=== PATIENT | female | born 1990 | race Caucasian/White ===

== ENCOUNTER → 2016-10-01 | Outpatient (CLI) | payer OTHER ==
[~2016-10-01] MED LIST: ACET-703 PO; AMOX500T PO; IBUP-232 PO; LEVO500T8 PO; NORE0.3514 PO; NYST1OIN TOPICAL; OXYC1TAB63 PO; PREN1CAP17 PO; PREN1TAB58; SENN1TAB PO; TERC0.4C2 VAGINAL; TYLE325T PO
== END ==
LOC: HPND 09:38
PROVIDERS: ATTEND Obstetrics & Gynecology Obstetrics
DX: O99.212 Obesity complicating pregnancy, second trimester (principal); O34.212 Maternal care for vertical scar from previous cesarean delivery; Z3A.23 23 weeks gestation of pregnancy
CPT/HCPCS: 76816

== ENCOUNTER 2016-10-17 16:41 | Emergency (ER) | payer MEDICAID, OTHER ==
[~2016-10-17 16:41] MED LIST changes: -IBUP-232 PO; -LEVO500T8 PO; -NORE0.3514 PO; -NYST1OIN TOPICAL; -OXYC1TAB63 PO; -PREN1TAB58; -SENN1TAB PO; -TERC0.4C2 VAGINAL; -TYLE325T PO
--- NOTE | 2016-10-17 17:42 | PD ---
HPI Chief Complaint Feeling bad at work dizzy shortness of breath and a fall at work Date Seen: Oct 17, 2016 Travel History International Travel<30 Days: No Contact w/Intl Traveler<30Days: No History of Present Illness HPI This patient is a 26-year-old white female previous who is at 25 weeks sees Heide Soler for care, and presents today just a lot of increase in malaise, feeling bad, dizziness,. Shortness of breath while at work she fell onto her knees at work and her boss told her to go home she went home since she still did not feel much better so she called the clinic and I told her to come here. She denies bleeding or ruptured membranes her baby is moving, and her heart rate tracing is reactive she is not eduarda denies pain in the abdomen, she states she's been working more that she should have and not sleeping at home this is led to her being overexerted Para: 1 : 3 History Obstetric History Obstetric History Previous Social History Alcohol Use: No Tobacco Use: No Substance Abuse: No Allergies-Medications (Allergen,Severity, Reaction): Coded Allergies: No Known Allergies (Verified , 09/25/16) Home Meds Active Scripts Amoxicillin 500 Mg [id number] Mg PO TID #30 TAB Ref 0 Prov:Akanksha Soler 09/25/16 W/O A W/ Fe Asparto G (Prenate Pixie 10-0.6-0.4-200 mg)1 Cap Cap1 Tab PO DAILY #30 BOTTLE Ref 11 Prov:Akanksha Soler 07/31/16 Reported Medications Acetaminophen (Tylenol Extra Strength)500 Mg [id number] Mg PO Q4-6H PRN (PAIN) Ref 0 08/28/16 Review of Systems HENT: Vertigo, Lightheadedness Respiratory: Short of Breath Musculoskeletal: Weakness Physical Exam Narrative GENERAL: Well-nourished, well-developed patient. SKIN: Warm and dry. HEAD: Normocephalic and atraumatic. EYES: No scleral icterus. No injection or drainage. ENT: No nasal drainage noted. Mucous membranes pink. Airway patent. NECK: Supple, trachea midline. No JVD. CARDIOVASCULAR: Regular rate and rhythm without murmurs, gallops, or rubs. RESPIRATORY: Breath sounds equal bilaterally. No accessory muscle use. BREASTS: Bilateral exam showed no masses , no retractions, no nipple discharge. ABDOMEN/GI: Abdomen soft, non-tender, bowel sounds present, no rebound, no guarding Gravid to [-27] weeks size Fundal Height: [28 cm-] GENITOURINARY: External Genitalia: intact and normal in appearance BUS glands: [-] Cervix: [-] Not checked today Membranes: [intact ] Uterine Contractions: [none-] FHT's: Category: [1-] Baseline: [144-] Reactive: [yes-] Variability: [mod-] Decels: [none-] EXTREMITIES: No cyanosis or edema. BACK: Nontender without obvious deformity. No CVA tenderness. NEUROLOGICAL: Awake and alert. Motor and sensory grossly within normal limits. Five out of 5 muscle strength in all muscle groups. Normal speech. MDM Interpretation(s) Recent is 26-year-old white female previous 25 weeks who is been overworking herself at her job and is result is having dizziness shortness of breath. Her O2 saturations are 100% today lungs are clear, after resting here on OB ED she did feel better heart rate tracing is reactive she is not eduarda she was given by mouth fluids for hydration today work release to be off work for the next 3-4 days and try and increase her bedrest during that time. Increase her oral fluids use Tylenol liberally if needed ,,heating pad and or hot bath . Her blood pressure was normal today and has not been an issue for her. Plan Plan to observe the patient for the next 30 minutes after the baby's heart rate monitors within normal limits and she is feeling better discharge her home to bedrest with a work note and fossa see her doctor for further problems. Diagnosis Diagnosis: Primary Impression: Dehydration, mild Additional Impression: Malaise and fatigue Disposition: 01 DISCHARGE HOME Condition: Stable Departure Forms: Work Release Jose Concepcion II, MD Oct 17, 2016 17:42
[2017-03-11] MEDS ORDERED: PREN1TAB58 (10:19)
[2017-03-11] MEDS ORDERED: TYLE325T PO (10:19)
[2017-03-11] MEDS ORDERED: NYST1OIN TOPICAL (10:45)
[2017-03-11] MEDS ORDERED: NORE0.3514 PO (10:51)
[2017-03-11] MEDS ORDERED: TERC0.4C2 VAGINAL (16:19)
[2017-03-17] MEDS ORDERED: LEVO500T8 PO (14:09)
== END 2016-10-17 19:08 | disposition home or self-care (01) ==
LOC: HOBED 16:41
DX: O26.812 Pregnancy related exhaustion and fatigue, second trimester (principal); O26.892 Other specified pregnancy related conditions, second trimester; E86.0 Dehydration; R06.02 Shortness of breath; R42 Dizziness and giddiness; O34.219 Maternal care for unspecified type scar from previous cesarean delivery; Z3A.25 25 weeks gestation of pregnancy
CPT/HCPCS: 99284

== ENCOUNTER → 2016-10-29 | Outpatient (CLI) | payer OTHER, MEDICAID ==
[~2016-10-29] MED LIST changes: +IBUP-232 PO; +LEVO500T8 PO; +NORE0.3514 PO; +NYST1OIN TOPICAL; +OXYC1TAB63 PO; +PREN1TAB58; +SENN1TAB PO; +TERC0.4C2 VAGINAL; +TYLE325T PO
== END ==
LOC: HPND 09:42
PROVIDERS: ATTEND Obstetrics & Gynecology
DX: O99.212 Obesity complicating pregnancy, second trimester (principal); O34.212 Maternal care for vertical scar from previous cesarean delivery
CPT/HCPCS: 76816

== ENCOUNTER → 2016-11-27 | Outpatient (CLI) | payer MEDICAID ==
[~2016-11-27] MED LIST changes: -AMOX500T PO
== END ==
LOC: HPND 09:29
PROVIDERS: ATTEND Obstetrics & Gynecology
DX: O99.212 Obesity complicating pregnancy, second trimester (principal); O34.212 Maternal care for vertical scar from previous cesarean delivery
CPT/HCPCS: 76816

== ENCOUNTER 2017-01-29 09:29 | Inpatient (IN) | payer MEDICAID ==
[2017-01-29] VITALS (32 sets, daily range): BP systolic 114–155; BP diastolic 50–87; PULSE 61–91; RESP 16–20; TEMP 97.6–98.6; O2SAT 100
[~2017-01-29] VITALS: Ht 160 cm; Wt 127.0 kg
[~2017-01-29 09:29] MED LIST changes: -IBUP-232 PO; -LEVO500T8 PO; -NORE0.3514 PO; -NYST1OIN TOPICAL; -OXYC1TAB63 PO; -PREN1TAB58; -SENN1TAB PO; -TERC0.4C2 VAGINAL; -TYLE325T PO
--- NOTE | 2017-01-29 10:28 | PD ---
HPI Chief Complaint referral from [facility] for low fluid Date Seen: January 29, 2017 Time Seen: 10:42 Travel History International Travel<30 Days: No Contact w/Intl Traveler<30Days: No History of Present Illness HPI 26 y/o at 40/4 weeks presents from ultrasound clinic for low AD. Pt was being seen at [facility] for history of morbid obesity and following growth. Today , AD was found to be 5.3. Otherwise, pt denies any other complaints. No vaginal bleeding, loss of fluids. Feeling occasional contractions, not painful. Endorses movement. Denies any chest pain, SOB, leg pain. No headache, changes in vision, RUQ pain. Has noticed some swelling in her feet lately. [facility] Para: 1 : 3 Miscarriage: 1 History Past Medical History Narrative Medical Morbid obesity Hx blighted ovum Obstetric History Obstetric History 1st - LTCS at term due to bradycardia 2nd - miscarriage Past Surgical History Narrative Surgical Cholecystectomy-2014 Foot surgery Family History Family History: Negative Social History Alcohol Use: No Tobacco Use: No Substance Abuse: No Allergies-Medications (Allergen,Severity, Reaction): Coded Allergies: No Known Allergies (Verified , 01/29/17) Home Meds Active Scripts W/O A W/ Fe Asparto G (Prenate Pixie 10-0.6-0.4-200 mg)1 Cap Cap1 Tab PO DAILY #30 BOTTLE Ref 11 Prov:Akanksha Soler 07/31/16 Reported Medications Acetaminophen (Tylenol Extra Strength)500 Mg [id number] Mg PO Q4-6H PRN (PAIN) Ref 0 08/28/16 Review of Systems General / Constitutional: Weight Gain, No: Fever, Weight Loss, Chills Eyes: No: Blurred Vision, Pain HENT: No: Headaches, Vertigo Cardiovascular: No: Irregular Rhythm, Chest Pain or Discomfort, Palpitations Respiratory: No: Cough, Short of Breath Gastrointestinal: No: Nausea, Vomiting, Diarrhea, Abdominal Pain Genitourinary: No: Urgency, Frequency, Dysuria, Pelvic Pain, Discharge, Vaginal Bleeding Musculoskeletal: Edema, No: Limited ROM, Weakness Skin: No Itching Neurologic: No: Weakness, Dizziness Psychiatric: No: Anxiety, Depression Physical Exam Narrative GENERAL: Well-nourished, well-developed patient. SKIN: Warm and dry. HEAD: Normocephalic and atraumatic. EYES: No scleral icterus. No injection or drainage. ENT: No nasal drainage noted. Mucous membranes pink. Airway patent. NECK: Supple, trachea midline. No JVD. CARDIOVASCULAR: Regular rate and rhythm without murmurs, gallops, or rubs. RESPIRATORY: Breath sounds equal bilaterally. No accessory muscle use. ABDOMEN/GI: Abdomen soft, non-tender, bowel sounds present, no rebound, no guarding Gravid to 40 weeks size GENITOURINARY: External Genitalia: intact and normal in appearance Cervix: posterior Dilatation: 2 Effacement: 50 Station: -3 Presentation: unsure Membranes: intact Uterine Contractions: occasional FHT's: Category: 1 Baseline: 140 Reactive: yes Variability: moderate Decels: none EXTREMITIES: No cyanosis. trace edema in feet bilaterally. BACK: Nontender without obvious deformity. No CVA tenderness. NEUROLOGICAL: Awake and alert. Motor and sensory grossly within normal limits. Five out of 5 muscle strength in all muscle groups. Normal speech. Data Data Vital Signs Reviewed: Yes [facility] Medical Record Reviewed: Yes Interpretation(s) 26 y/o at 40/4 weeks presents post-dates with oligohydramnios Category 1 FHT Cervical exam 2/50/-3 GBS negative Initial BP 153/93, 150/94, 148/90;trace foot edema bilaterally - Admit for trial of labor; Pt wishes to continue with , discussed risks and possibility of - Start pitocin, 1ml/min - Continuous FHT - Monitor BPs. Will order CMP, Protein/Cr ration, uric acid - Continue expectant management Diagnosis Diagnosis: Primary Impression: 40 weeks gestation of Additional Impression: Oligohydramnios Qualified Code: O41.03X0 - Oligohydramnios, third trimester, not applicable or unspecified fetus Dano Sandhu MD R1 January 29, 2017 10:27
[2017-01-29] MEDS ORDERED: LACTATED RINGER'S 1000 ML INJ 1,000 ML IV PRN (10:41)
[2017-01-29] MEDS ORDERED: LACTATED RINGER'S 1000 ML INJ 1,000 ML IV SCH ×2 (10:41→13:03)
[2017-01-29] MEDS ORDERED: LIDOCAINE HCL 1% 50 ML VIAL INFIL PRN (10:45)
[2017-01-29] MEDS ORDERED: OXYTOCIN 30 UNITS-500ML PREMIX 500 ML IV SCH (10:45)
[2017-01-29] MEDS ORDERED: SODIUM CHLORID 0.9% 500 ML INJ 500 ML IV PRN (10:45)
[2017-01-29] MEDS ORDERED: MINERAL OIL 10 ML VIAL TOPICAL PRN (10:45)
[2017-01-29] MEDS ORDERED: ONDANSETRON HCL 4 MG/2 ML VIAL IV PRN (10:45)
[2017-01-29] MEDS ORDERED: CITRIC ACID-SODIUM CITRATE LIQ 30 ML UDC PO SCH (10:45)
[2017-01-29] MEDS ORDERED: OXYTOCIN 30 UNITS-500ML PREMIX 500 ML IV ONE ×2 (10:45→21:45)
[2017-01-29] MEDS ORDERED: LIDOCAINE HCL 1% 50 ML VIAL I-DERMAL PRN (10:45)
[2017-01-29] MEDS ORDERED: SODIUM CHLOR 0.9% 1000 ML INJ 1,000 ML IV PRN (11:01)
[2017-01-29 11:09] LABS: AUTOMATED NEUTROPHIL # 6.1 TH/MM3 (1.8-7.7); BASOPHIL # 0.1 TH/MM3 (0-0.2); BASOPHIL % 0.6 % (0.0-2.0); EOSINOPHIL # 0.1 TH/MM3 (0-0.4); EOSINOPHIL % 1.7 % (0.0-4.0); HEMATOCRIT 33.3 % (35.0-46.0); HEMO FLAGS DIFF FINAL; LYMPH % 17.7 % (9.0-44.0); LYMPHOCYTE # 1.5 TH/MM3 (1.0-4.8); MEAN CELL VOLUME 85.8 FL (80.0-100.0); MEAN CORPUSCULAR HEMOGLOBIN 28.7 PG (27.0-34.0); MEAN CORPUSCULAR HGB CONC 33.5 % (32.0-36.0); MONO % 8.7 % (0.0-8.0); NEUT % 71.3 % (16.0-70.0); PLATELET COUNT 161 TH/MM3 (150-450); RED BLOOD COUNT 3.89 MIL/MM3 (4.00-5.30); RED CELL DISTRIBUTION WIDTH 13.9 % (11.6-17.2); WHITE BLOOD COUNT 8.6 TH/MM3 (4.0-11.0)
[2017-01-29 11:14] LABS: BLOOD, URINE NEG (NEG); GLUCOSE,URINE NEG (NEG); KETONE, URINE NEG (NEG); MUCUS URINE FEW /lpf (OCC); NITRITE,URINE NEG (NEG); SQUAMOUS EPITHELIAL CELL URINE 3 /hpf (0-5); URINE COLOR YELLOW (YELLW/STRAW)
[2017-01-29 11:20] LABS: COMMENT (UR) CATH-CULT NOT IND; CULTURE IF INDICATED CATH CULTURE NOT IND
--- NOTE | 2017-01-29 11:25 | HHI.HP ---
History & Physical H&P HPI HPI Chief Complaint referral from [facility] for low fluid Date Seen: January 29, 2017 Time Seen: 10:42 Travel History International Travel<30 Days: No Contact w/Intl Traveler<30Days: No History of Present Illness HPI 26 y/o at 40/4 weeks presents from ultrasound clinic for low AD. Pt was being seen at [facility] for history of morbid obesity and following growth. Today , AD was found to be 5.3. Otherwise, pt denies any other complaints. No vaginal bleeding, loss of fluids. Feeling occasional contractions, not painful. Endorses movement. Denies any chest pain, SOB, leg pain. No headache, changes in vision, RUQ pain. Has noticed some swelling in her feet lately. Sees [facility]. Para: 1 : 3 Miscarriage: 1 History (Limited) History Past Medical History Narrative Medical Morbid obesity Hx blighted ovum Obstetric History Obstetric History 1st - LTCS at term due to bradycardia 2nd - miscarriage Past Surgical History Narrative Surgical Cholecystectomy-2014 Foot surgery Family History Family History: Negative Social History Alcohol Use: No Tobacco Use: No Substance Abuse: No Allergies-Medications Allergies-Medications (Allergen,Severity, Reaction): Coded Allergies: No Known Allergies (Verified , 01/29/17) Home Meds Active Scripts W/O A W/ Fe Asparto G (Prenate Pixie 10-0.6-0.4-200 mg)1 Cap Cap1 Tab PO DAILY #30 BOTTLE Ref 11 Prov:Akanksha Soler 07/31/16 Reported Medications Acetaminophen (Tylenol Extra Strength)500 Mg [id number] Mg PO Q4-6H PRN (PAIN) Ref 0 08/28/16 ROS Review of Systems General / Constitutional: Weight Gain, No: Fever, Weight Loss, Chills Eyes: No: Blurred Vision, Pain HENT: No: Headaches, Vertigo Cardiovascular: No: Irregular Rhythm, Chest Pain or Discomfort, Palpitations Respiratory: No: Cough, Short of Breath Gastrointestinal: No: Nausea, Vomiting, Diarrhea, Abdominal Pain Genitourinary: No: Urgency, Frequency, Dysuria, Pelvic Pain, Discharge, Vaginal Bleeding Musculoskeletal: Edema, No: Limited ROM, Weakness Skin: No Itching Neurologic: No: Weakness, Dizziness Psychiatric: No: Anxiety, Depression Physical Exam Physical Exam Narrative GENERAL: Well-nourished, well-developed patient. SKIN: Warm and dry. HEAD: Normocephalic and atraumatic. EYES: No scleral icterus. No injection or drainage. ENT: No nasal drainage noted. Mucous membranes pink. Airway patent. NECK: Supple, trachea midline. No JVD. CARDIOVASCULAR: Regular rate and rhythm without murmurs, gallops, or rubs. RESPIRATORY: Breath sounds equal bilaterally. No accessory muscle use. ABDOMEN/GI: Abdomen soft, non-tender, bowel sounds present, no rebound, no guarding Gravid to 40 weeks size GENITOURINARY: External Genitalia: intact and normal in appearance Cervix: posterior Dilatation: 2 Effacement: 50 Station: -3 Presentation: unsure Membranes: intact Uterine Contractions: occasional FHT's: Category: 1 Baseline: 140 Reactive: yes Variability: moderate Decels: none EXTREMITIES: No cyanosis. trace edema in feet bilaterally. BACK: Nontender without obvious deformity. No CVA tenderness. NEUROLOGICAL: Awake and alert. Motor and sensory grossly within normal limits. Five out of 5 muscle strength in all muscle groups. Normal speech. Data Data Data Vital Signs Reviewed: Yes MDM MDM Medical Record Reviewed: Yes Interpretation(s) 26 y/o at 40/4 weeks presents post-dates with oligohydramnios Category 1 FHT Cervical exam 2/50/-3 GBS negative Initial BP 153/93, 150/94, 148/90;trace foot edema bilaterally - Admit for trial of labor; Pt wishes to continue with , discussed risks and possibility of - Start pitocin, 1ml/min - Continuous FHT - Monitor BPs. Will order CMP, Protein/Cr ration, uric acid - Continue expectant management Diagnosis Diagnosis: Primary Impression: 40 weeks gestation of Additional Impression: Oligohydramnios Qualified Code: O41.03X0 - Oligohydramnios, third trimester, not applicable or unspecified fetus Dano Sandhu MD R1 January 29, 2017 11:25
[2017-01-29 11:28] LABS: ALT (GPT) 21 U/L (10-53); ANION GAP 9 MEQ/L (5-15); AST (GOT) 25 U/L (15-37); BICARBONATE 21.9 MEQ/L (21.0-32.0); BLOOD UREA NITROGEN 11 MG/DL (7-18); CHLORIDE 108 MEQ/L (98-107); GLOMERULAR FILTRATION RATE 111 ML/MIN (>89); POTASSIUM 3.8 MEQ/L (3.5-5.1); SODIUM (NA) 139 MEQ/L (136-145)
[2017-01-29 11:30] LABS: ALKALINE PHOSPHATASE 343 U/L (45-117); TOTAL BILIRUBIN ADULT 0.2 MG/DL (0.2-1.0)
[2017-01-29] MEDS ORDERED: ceFAZolin 2 GM PREMIX 50 ML IV ONE (13:45)
[2017-01-29] MEDS ORDERED: CITRIC ACID-SODIUM CITRATE LIQ 30 ML UDC PO ONE (14:15)
--- NOTE | 2017-01-29 18:26 | PD.LABORPN ---
Subjective Subjective Patient feeling some mild contractions Objective Vital Signs Pitocin at 10 milliunits Vital Signs Date Time Temp Pulse Resp B/P Pulse Ox O2 Delivery O2 Flow Rate FiO2 01/29/17 18:16 80 132/77 01/29/17 17:54 87 114/71 01/29/17 17:31 72 120/64 01/29/17 17:16 64 127/61 01/29/17 17:01 62 117/55 01/29/17 16:46 68 126/50 01/29/17 16:31 69 132/66 01/29/17 16:16 69 133/72 01/29/17 16:01 76 123/74 01/29/17 15:46 68 125/67 01/29/17 15:31 69 135/68 01/29/17 15:16 67 131/73 01/29/17 15:01 71 130/74 01/29/17 14:46 70 123/71 01/29/17 14:31 74 128/76 01/29/17 14:22 74 142/72 01/29/17 14:21 98.6 18 01/29/17 13:15 18 01/29/17 13:13 79 143/83 01/29/17 11:20 91 138/87 Objective No cervical change from admission Uterine Contractions: [-] Irregular FHT's: Category: [-] 1 Baseline: [-] 140 Reactive: [-] + Variability: [-] Moderate kzuj-cl-cagz variability Decels: [-] 0 Assessment/Plan Assessment and Plan Previous 1 Postdates 40 weeks and 4 days Borderline oligohydramnios No cervical change Plan; The patient has decided that she does not want to do Pitocin anymore would like to proceed with a repeat Option was given to stop the Pitocin lid her ambulate feet her shower and restarted in the morning She has elected to undergo repeat Procedure indications and complications have been fully discussed with the patient she understands desires to proceed this is her own decision Ailyn Khalil MD January 29, 2017 18:26
[2017-01-29] MEDS ORDERED: LACTATED RINGER'S 1000 ML INJ 1,000 ML IV ONE ×2 (18:33→21:30)
[2017-01-29] MEDS ORDERED: OXYTOCIN 10 UNIT/ML AMP ONE (18:35)
--- NOTE | 2017-01-29 19:37 | PD.LABORPN ---
Objective Vital Signs Vital Signs Date Time Temp Pulse Resp B/P Pulse Ox O2 Delivery O2 Flow Rate FiO2 01/29/17 18:31 75 135/76 01/29/17 18:16 80 132/77 01/29/17 17:54 87 114/71 01/29/17 17:31 72 120/64 01/29/17 17:16 64 127/61 01/29/17 17:01 62 117/55 01/29/17 16:46 68 126/50 01/29/17 16:31 69 132/66 01/29/17 16:16 69 133/72 01/29/17 16:01 76 123/74 01/29/17 15:46 68 125/67 01/29/17 15:31 69 135/68 01/29/17 15:16 67 131/73 01/29/17 15:01 71 130/74 01/29/17 14:46 70 123/71 01/29/17 14:31 74 128/76 01/29/17 14:22 74 142/72 01/29/17 14:21 98.6 18 01/29/17 13:15 18 01/29/17 13:13 79 143/83 Objective Patient taken back to the operating room on the table and just prior to the spinal placement a stat emergency was called by private physician Chain of command was initiated-it was explained 2 C-sections could not be done at the same time as there was not adequate staffing Charge nurse prioritized the stat emergency was to go first Second patient taken from the operating room back to her room placed back on the monitor Has a category 1 tracing Her diagnosis is previous section for repeat, oligohydramnios This was explained to the patient she understands and agrees Ailyn Khalil MD January 29, 2017 19:37
[2017-01-29] MEDS ORDERED: ONDANSETRON HCL 4 MG/2 ML VIAL IV PUSH ONE (21:35)
[2017-01-29] MEDS ORDERED: SIMETHICONE 80 MG CHEWABLE TAB PO PRN (21:45)
[2017-01-29] MEDS ORDERED: ACETAMINOPHEN 1000 MG/100 ML VIAL IV ONE ×2 (21:45→22:25)
[2017-01-29] MEDS ORDERED: oxyCODONE/ACETAMINOPHEN 5 MG/325 MG TAB PO PRN (21:45)
[2017-01-29] MEDS ORDERED: ZOLPIDEM TARTRATE 5 MG TAB PO PRN (21:45)
[2017-01-29] MEDS ORDERED: ACETAMINOPHEN 325 MG TAB PO PRN (21:45)
[2017-01-29] MEDS ORDERED: MORPHINE SULFATE PF 5 MG/10 ML VIAL ONE (21:45)
[2017-01-29] MEDS ORDERED: ONDANSETRON HCL 4 MG/2 ML VIAL IV PUSH PRN (21:45)
[2017-01-29] MEDS ORDERED: KETOROLAC TROMETHAMINE 60 MG/2 ML (IM) VIAL IM PRN (21:45)
--- NOTE | 2017-01-29 22:46 | PD.OP ---
Operative Report Date of Surgery: January 29, 2017 Preoperative Diagnosis: Intrauterine at 40 weeks and 4 days Postdates Previous 1 oligohydramnios Postoperative Diagnosis: Same Macrosomia Procedure: Repeat low segment transverse section/vacuum-assisted Anesthesia: Spinal Surgeon: Ailyn Carter Svp Operations(s): Dr. Rock Strange Resident Surgeon: none Operation and Findings: Anesthesiologist:: (Dr Tolentino ) Estimated blood loss: (700 cc ) Sponge and instrument count: ( Correct) Drains: ( None) Complications: (None ) Indications for procedure: (Previous 1 with failed ) Findings: (Viable male weight 4110 g Apgars of 9 at 1 minute 9 at 5 minutes ) Timeout done The patient was taken to the operating room after appropriate levels of spinal anesthesia were achieved she was placed in the supine position. A Pleitez catheter was inserted under sterile conditions and draining adequate clear urine. Intermittent compression hoses were placed and functioning. Bovie pad was placed and grounded. The abdomen was shaved prepped and draped in the usual sterile fashion. A transverse Pfannenstiel incision was made carried down through the skin subcutaneous tissue. The fascia was opened transversely. from the muscles in the midline. The rectus muscles were . Peritoneal cavity opened and the abdominal cavity entered. The bladder flap was taken down transversely and a low segment transverse incision made into the lower uterine segment. The fluid was (clear ). The infant was vertex. Due to the macrosomia a flat Kiwi vacuum was placed at the flexion point and the vertex elevated into the incision The vertex was delivered nose and mouth suctioned well the remainder of the body was then delivered. Cord doubly clamped and cut and the infant handed over to the awaiting nursing staff. The placenta spontaneously delivered intact with fundal massage. The uterus was then exteriorized cleaned of excessive blood and debris. The incision was then closed with 0 chromic in a continuous interlocking stitch. The stitch line was imbricated also using 0 chromic. No active bleeding. Tubes and ovaries were inspected and found to be normal. The abdominal cavity was then irrigated. The uterus placed back into the abdomen. Paracolic gutters cleaned of excessive blood and debris. Interceed was then placed over the incision and the anterior surface of the uterus in an inverted T. The peritoneum was then closed with 2-0 Vicryl. The muscles reapproximated. Inspection of the muscle bed demonstrated no bleeding. The fascia was then closed with 0 Vicryl in a continuous stitch. The subcutaneous tissue was irrigated bleeders controlled with Bovie. Wilfredo's fascia closed with 2-0 Vicryl. The skin was closed using (subcuticular stitch with 3-0 Monocryl on a Parmjit needle ). The uterus was massaged clearing blood and clots. The patient was cleaned. Pressure dressing and abdominal binder placed. Patient then transferred to the recovery room in stable condition, where her vital signs are (stable ). Urine is clear and adequate. Baby transferred to the nursery in stable condition. Ailyn Khalil MD January 29, 2017 22:46
[2017-01-29] MEDS ORDERED: EPIDURAL-DIPHENHYDRAMINE HCL 50 MG CAP PO PRN (23:45)
[2017-01-29] MEDS ORDERED: EPIDURAL-NO SYSTEMIC NARCOTICS PRN (23:45)
[2017-01-29] MEDS ORDERED: EPIDURAL-DIPHENHYDRAMINE HCL 50 MG/ML VIAL IV PUSH PRN (23:45)
[2017-01-29] MEDS ORDERED: EPIDURAL-NALOXONE HCL 0.4 MG/ML AMP IV PRN (23:45)
[2017-01-29] MEDS ORDERED: EPIDURAL-DO NOT ADMINISTER ANTICOAGULANTS PRN (23:45)
[2017-01-30 00:30] VITALS: BP 131/74; PULSE 94; RESP 18; RESP 20; TEMP 98.7
[2017-01-30] MEDS ORDERED: LACTATED RINGER'S 1000 ML INJ 1,000 ML IV SCH (02:41)
[2017-01-30 04:00] VITALS: BP 128/68; PULSE 88; RESP 18; TEMP 98.8
[2017-01-30 06:55] LABS: AUTOMATED NEUTROPHIL # 8.8 TH/MM3 (1.8-7.7); BASOPHIL % 0.3 % (0.0-2.0); EOSINOPHIL # 0.1 TH/MM3 (0-0.4); HEMATOCRIT 28.6 % (35.0-46.0); HEMO FLAGS DIFF FINAL; LYMPH % 12.9 % (9.0-44.0); LYMPHOCYTE # 1.4 TH/MM3 (1.0-4.8); MEAN CORPUSCULAR HEMOGLOBIN 29.8 PG (27.0-34.0); MEAN CORPUSCULAR HGB CONC 34.7 % (32.0-36.0); MONO % 7.7 % (0.0-8.0); NEUT % 78.1 % (16.0-70.0); PLATELET COUNT 144 TH/MM3 (150-450); RED BLOOD COUNT 3.33 MIL/MM3 (4.00-5.30); RED CELL DISTRIBUTION WIDTH 13.8 % (11.6-17.2); WHITE BLOOD COUNT 11.2 TH/MM3 (4.0-11.0)
[2017-01-30 07:00] VITALS: BP 121/71; PULSE 96; RESP 18; TEMP 100
[2017-01-30] MEDS ORDERED: OXYTOCIN 30 UNITS-500ML PREMIX 500 ML IV PRN (07:45)
[2017-01-30] MEDS: DOCUSATE SODIUM 50 MG/SENNA 8.6 MG TAB PO PRN ×2 (08:07→21:54)
[2017-01-30] MEDS: oxyCODONE/ACETAMINOPHEN 5 MG/325 MG TAB PO PRN ×2 (08:08→21:54)
[2017-01-30] MEDS: IBUPROFEN 600 MG TAB PO PRN ×2 (08:08→19:29)
--- NOTE | 2017-01-30 08:25 | HHI.OB ---
Subjective Post Operative Day: 1 Remarks Postoperative day number 1. AFVSS overnight. Temp of 100.0 this morning. Pain well-controlled. Incision not draining. Decreased lochia. Denies dysuria. No breast tenderness. She is feeding the baby via breast. Appetite good. No nausea or vomiting. Endorses flatus. No bowel movement. Ambulating well. Denies calf pain, shortness of breath, or cough. Otherwise, she is doing well this morning and has no other complaints. Objective Vitals/I&O Vital Signs Date Time Temp Pulse Resp B/P Pulse Ox O2 Delivery O2 Flow Rate FiO2 01/30/17 07:00 100.0 18 01/30/17 07:00 96 121/71 01/30/17 04:00 98.8 88 18 128/68 01/30/17 00:30 98.7 94 18 131/74 01/30/17 00:30 20 01/29/17 23:15 149/80 01/29/17 23:14 68 20 100 01/29/17 23:14 98.2 01/29/17 23:00 84 20 137/74 100 01/29/17 22:45 151/78 01/29/17 22:45 79 20 100 01/29/17 22:30 155/70 01/29/17 22:29 75 20 100 01/29/17 22:15 73 18 146/74 100 01/29/17 22:00 61 18 130/81 100 01/29/17 21:45 97.6 100 01/29/17 21:45 78 18 139/79 01/29/17 19:39 16 01/29/17 19:39 98.2 01/29/17 19:35 88 125/62 01/29/17 18:31 75 135/76 01/29/17 18:16 80 132/77 01/29/17 17:54 87 114/71 01/29/17 17:31 72 120/64 01/29/17 17:16 64 127/61 01/29/17 17:01 62 117/55 01/29/17 16:46 68 126/50 01/29/17 16:31 69 132/66 01/29/17 16:16 69 133/72 01/29/17 16:01 76 123/74 01/29/17 15:46 68 125/67 01/29/17 15:31 69 135/68 01/29/17 15:16 67 131/73 01/29/17 15:01 71 130/74 01/29/17 14:46 70 123/71 01/29/17 14:31 74 128/76 01/29/17 14:22 74 142/72 01/29/17 14:21 98.6 18 01/29/17 13:15 18 01/29/17 13:13 79 143/83 01/29/17 11:20 91 138/87 Result Diagram: 01/30/17 0613 01/29/17 1055 Objective Remarks GENERAL: Well-nourished, well-developed patient. CARDIOVASCULAR: Regular rate and rhythm without murmurs, gallops, or rubs. RESPIRATORY: Breath sounds equal bilaterally. No accessory muscle use. ABDOMEN/GI: Abdomen soft, non-tender, bowel sounds present. Incision: Clean, dry and intact. Fundus: Firm, non-tender at umbilicus. GENITOURINARY: Light to moderate bleeding. EXTREMITIES: No cyanosis or edema, non-tender, without signs of DVT. Medications and IVs Current Medications Medications (Trade) Dose Ordered Sig/Tawny Route Start Time Stop Time Status Last Admin (NS 500 ml Inj) 500 ml @ 1,000 mls/hr ONCE PRN IV 01/29/17 10:45 01/30/17 10:44 (Zofran Inj) 4 mg Q6H PRN IV 01/29/17 10:45 (fentaNYL INJ) 50 mcg Q1H PRN IV PUSH 01/29/17 10:45 (fentaNYL INJ) 100 mcg Q1H PRN IV PUSH 01/29/17 10:45 Mineral Oil 10 ml 10 ml UNSCH PRN TOPICAL 01/29/17 10:45 Oxytocin 500 ml @ 0 mls/hr TITRATE IV 01/29/17 10:45 01/29/17 13:09 Lactated Ringer's 1,000 ml @ 150 mls/hr Q6H40M IV 01/29/17 13:03 (Lr 1000 ml Inj) 1,000 ml @ 100 mls/hr Q10H IV 01/30/17 02:41 01/30/17 22:40 01/30/17 02:42 (Mylicon Chew) 80 mg QID PRN PO 01/29/17 21:45 (Tylenol) 650 mg Q6H PRN PO 01/29/17 21:45 (Motrin) 600 mg Q6H PRN PO 01/29/17 21:45 01/30/17 08:08 (Toradol Inj) 30 mg Q6H PRN IM 01/29/17 21:45 01/30/17 21:44 (Percocet 5-325 Mg) 1 tab Q4H PRN PO 01/29/17 21:45 01/30/17 08:08 Oxycodone/ Acetaminophen 2 tab 2 tab Q4H PRN PO 01/29/17 21:45 (Ancef Inj/NS Inj) 100 ml @ 200 mls/hr Q8H IV 01/30/17 03:00 01/30/17 11:29 01/30/17 02:57 (Marlena-Colace) 2 tab Q12H PRN PO 01/29/17 21:45 01/30/17 08:07 (Ambien) 5 mg HS PRN PO 01/29/17 21:45 (M-M-R Ii Inj) 0.5 ml ONCE ONCE SQ 01/30/17 16:00 01/30/17 16:01 (Boostrix Inj) 0.5 ml ONCE ONCE IM 01/30/17 16:00 01/30/17 16:01 (Zofran Inj) 4 mg Q6H PRN IV PUSH 01/29/17 21:45 Miscellaneous Information NO SYSTEMIC NARCOTICS TO BE GIVEN FO... UNSCH PRN .XX 01/29/17 23:45 01/30/17 23:44 (Narcan Inj) 0.4 mg UNSCH PRN IV 01/29/17 23:45 01/30/17 23:44 (Benadryl Inj) 25 mg Q6H PRN IV PUSH 01/29/17 23:45 01/30/17 23:44 (Benadryl) 50 mg Q6H PRN PO 01/29/17 23:45 01/30/17 23:44 Miscellaneous Information ALL NURSING DEPARTMENTS UNSCH PRN .XX 01/29/17 23:45 01/30/17 23:44 Assessment/Plan Assessment and Plan 26y/o female who is POD#1 s/p CXN. -Continue routine care. -Percocet and Motrin PRN pain. -Encouraged OOB. Advised pelvic rest for 6 wks. Will need a f/u appt. in 1 wk for incision check. -D/c in 1-2 more days. capo Sandhu,Dano Chang MD R1 January 30, 2017 08:25
[2017-01-30 11:55] VITALS: BP 115/81; PULSE 102; RESP 20; TEMP 98.1
[2017-01-30] MEDS ORDERED: DIPHTH/TETANUS/ACEL PERTUSSIS (BOOSTER) 0.5 ML VIAL/PFS IM ONE (16:00)
[2017-01-30] MEDS ORDERED: MEASLES, MUMPS, RUBELLA VACCINE 0.5 ML VIAL SQ ONE (16:00)
[2017-01-30 20:03] VITALS: BP 142/87; PULSE 122; RESP 16; TEMP 99.6
[2017-01-31 08:00] VITALS: BP 135/82; PULSE 94; RESP 18; TEMP 98.4; O2SAT 100
--- NOTE | 2017-01-31 08:25 | HHI.OB ---
Subjective Post Operative Day: 2 Remarks Postoperative day number 2. AFVSS overnight. Pain well-controlled. Incision not draining. Decreased lochia. Denies dysuria. No breast tenderness. She is feeding the baby via breast. Appetite good. No nausea or vomiting. Endorses flatus. No bowel movement. Ambulating well. Denies calf pain, shortness of breath, or cough. Otherwise, she is doing well this morning and has no other complaints. Patient wanting to go home. Objective Vitals/I&O Vital Signs Date Time Temp Pulse Resp B/P Pulse Ox O2 Delivery O2 Flow Rate FiO2 01/30/17 22:54 18 01/30/17 20:29 18 01/30/17 20:03 142/87 01/30/17 20:03 99.6 122 16 01/30/17 11:55 115/81 01/30/17 11:55 98.1 102 20 Result Diagram: 01/30/17 0613 01/29/17 1055 Objective Remarks GENERAL: Well-nourished, well-developed patient. CARDIOVASCULAR: Regular rate and rhythm without murmurs, gallops, or rubs. RESPIRATORY: Breath sounds equal bilaterally. No accessory muscle use. ABDOMEN/GI: Abdomen soft, non-tender, bowel sounds present. Incision: Clean, dry and intact. Fundus: Firm, non-tender at umbilicus. GENITOURINARY: Light bleeding. EXTREMITIES: No cyanosis or edema, non-tender, without signs of DVT. Medications and IVs Current Medications Medications (Trade) Dose Ordered Sig/T[place]y Route Start Time Stop Time Status Last Admin (Zofran Inj) 4 mg Q6H PRN IV 01/29/17 10:45 (fentaNYL INJ) 50 mcg Q1H PRN IV PUSH 01/29/17 10:45 (fentaNYL INJ) 100 mcg Q1H PRN IV PUSH 01/29/17 10:45 Mineral Oil 10 ml 10 ml UNSCH PRN TOPICAL 01/29/17 10:45 Oxytocin 500 ml @ 0 mls/hr TITRATE IV 01/29/17 10:45 01/29/17 13:09 (Lr 1000 ml Inj) 1,000 ml @ 150 mls/hr Q6H40M IV 01/29/17 13:03 (Mylicon Chew) 80 mg QID PRN PO 01/29/17 21:45 (Tylenol) 650 mg Q6H PRN PO 01/29/17 21:45 (Motrin) 600 mg Q6H PRN PO 01/29/17 21:45 01/30/17 19:29 (Percocet 5-325 Mg) 1 tab Q4H PRN PO 01/29/17 21:45 01/30/17 21:54 (Percocet 5-325 Mg) 2 tab Q4H PRN PO 01/29/17 21:45 (Marlena-Colace) 2 tab Q12H PRN PO 01/29/17 21:45 01/30/17 21:54 (Ambien) 5 mg HS PRN PO 01/29/17 21:45 (Zofran Inj) 4 mg Q6H PRN IV PUSH 01/29/17 21:45 Assessment/Plan Assessment and Plan 26y/o female who is POD#2s/p CXN. -Continue routine care. -Percocet and Motrin PRN pain. -Encouraged OOB. Advised pelvic rest for 6 wks. Will need a f/u appt. in 1 wk for incision check. -D/c today/tomorrow Dano Sandhu MD R1 January 31, 2017 08:25
[2017-01-31 08:29] VITALS: BP 135/89; PULSE 94; RESP 18; TEMP 98.4
--- NOTE | 2017-01-31 09:01 | HHI.DCPOC ---
Discharge Care Plan Diagnosis: (1) with history of caesarean section, antepartum (2) Normal , repeat Report Symptoms to Your Doctor -Temperate above 100.5 degrees -Redness, of incision or excessive or foul smelling drainage -Unusual pain or calf pain -Increased vaginal bleeding -Painful or difficulty urinating -Feelings of extreme sadness or anxiety after 2 weeks Goals to Promote Your Health * To prevent worsening of your condition and complications * To maintain your health at the optimal level Directions to Meet Your Goals Take your medications as prescribed Follow your dietary instruction Follow activity as directed Ensure plenty of rest for recovery Drink fluids for hydration Keep your appointments as scheduled Take your immunizations and boosters as scheduled If your symptoms worsen call your PCP, if no PCP go to Urgent Care Center or Emergency Room Smoking is Dangerous to Your Health. Avoid second hand smoke Call the 24-hour crisis hotline for domestic abuse at Dano Sandhu MD R1 January 31, 2017 09:01
[2017-01-31] MEDS ORDERED: SENN1TAB PO (09:04)
[2017-01-31] MEDS ORDERED: IBUP-232 PO (09:04)
[2017-01-31] MEDS ORDERED: OXYC1TAB63 PO (09:04)
[2017-01-31] MEDS: IBUPROFEN 600 MG TAB PO PRN (10:24)
[2017-01-31] MEDS: oxyCODONE/ACETAMINOPHEN 5 MG/325 MG TAB PO PRN (10:24)
[2017-03-11] MEDS ORDERED: TYLE325T PO (10:19)
[2017-03-11] MEDS ORDERED: PREN1TAB58 (10:19)
[2017-03-11] MEDS ORDERED: NYST1OIN TOPICAL (10:45)
[2017-03-11] MEDS ORDERED: NORE0.3514 PO (10:51)
[2017-03-11] MEDS ORDERED: TERC0.4C2 VAGINAL (16:19)
[2017-03-17] MEDS ORDERED: LEVO500T8 PO (14:09)
== END 2017-01-31 12:20 | disposition home or self-care (01) | DRG 766 ==
LOC: HOBED 09:29 → H2EB 10:41 → H2EA 11:00 → H1EA 23:39
PROVIDERS: ADMIT Obstetrics & Gynecology; ATTEND Obstetrics & Gynecology
PROC: 10D00Z1 Extraction of Products of Conception, Low, Open Approach (ICD-10-PCS; principal; 2017-01-29)
DX: O41.03X0 Oligohydramnios, third trimester, not applicable or unspecified (principal); O99.214 Obesity complicating childbirth; O48.0 Post-term pregnancy; O34.211 Maternal care for low transverse scar from previous cesarean delivery; O36.63X0 Maternal care for excessive fetal growth, third trimester, not applicable or unspecified; Z3A.40 40 weeks gestation of pregnancy; Z37.0 Single live birth
CPT/HCPCS: 76818; 80053; 81001; 82570; 84156; 84550; 85025; 86900; 86901; 90707; 90715; 99285; C1765; J0131; J0690; J2274; J2405; J2590; J7120